=== PATIENT | female | born 1975 | race Asian ===

== ENCOUNTER → 2017-01-14 | Outpatient (CLI) | payer OTHER | LOC: FIMAGING 10:07 | PROVIDERS: ATTEND Obstetrics & Gynecology | DX: Z12.39 Encounter for other screening for malignant neoplasm of breast (principal); R22.2 Localized swelling, mass and lump, trunk | CPT/HCPCS: G0204 ==

== ENCOUNTER 2017-02-17 22:00 | Emergency (ER) | payer OTHER ==
[2017-02-17 22:09] VITALS: RESP 16
[2017-02-17] MEDS ORDERED: KETOROLAC 15 MG/1 ML SDV IVP ONE (22:44)
[2017-02-17 22:48] LABS: ABSOLUTE IMMATURE GRANULOCYTES 0.08 10^3/uL (0.00-0.10); ADD DIFF? NO; ADD MORPH? NO; ADD SCAN? NO; ATYPICAL LYMPHOCYTE FLAG 10 (0-99); FRAGMENT RBC FLAG 0 (0-99); HEMATOCRIT 36.9 % (38.0-47.0); HEMOGLOBIN 12.6 g/dL (12.6-16.3); LEFT SHIFT FLG 0 (0-99); LIPEMIA HEMOLYSIS FLAG 90 (0-99); MEAN CELL HEMOGLOBIN 29.2 pg (27.9-34.1); MEAN CELL HEMOGLOBIN CONCENTR. 34.1 g/dL (32.4-36.7); MEAN CELL VOLUME 85.4 fL (81.5-99.8); MEAN PLATELET VOLUME 10.3 fL (8.7-11.7); PLATELET CLUMPS FLAG 0 (0-99); PLATELET COUNT 189 10^3/uL (150-400); RED BLOOD CELL COUNT 4.32 10^6/uL (4.18-5.33); RED CELL DISTRIBUTION WIDTH 12.9 % (11.5-15.2)
--- NOTE | 2017-02-17 22:53 | CPEKG ---
Heart Rate: 91 RR Interval: 659 P-R Interval: 160 QRSD Interval: 82 QT Interval: 336 QTC Interval: 414 P Mclouth: 46 QRS Mclouth: 42 T Wave Mclouth: 23 EKG Severity - NORMAL ECG - EKG Impression: SINUS RHYTHM Electronically Signed By: Sanjay Camarena 18-Feb-2017 02:47:43
[2017-02-17 22:57] LABS: ANION GAP 15 mEq/L (8-16); CALCIUM 9.8 mg/dL (8.5-10.4); CARBON DIOXIDE 20 mEq/l (22-31); CHLORIDE 102 mEq/L (97-110); CREATININE 0.6 mg/dL (0.6-1.0); GLOMERULAR FILTRATION RATE > 60; GLUCOSE 120 mg/dL (70-100); POTASSIUM 3.5 mEq/L (3.5-5.2); SODIUM 137 mEq/L (134-144)
[2017-02-17 23:08] LABS: TROPONIN I < 0.012 ng/mL (0-0.034)
--- NOTE | 2017-02-17 23:37 | EDPHY ---
H & P Stated Complaint: cp Time Seen by Provider: 02/17/17 22:38 HPI/ROS: Chief Complaint: Chest pain HPI: 41-year-old woman had this sudden onset of left-sided upper chest pain at 9:30 a.m. this evening. At worst pain was a 7/10. Is not afford a 10. She did take 325 mg of aspirin at home. Has had a similar history in the past but not as severe. Worse with movement. No shortness of breath. No recent illness. No leg pain or swelling. Pain is not pleuritic. It is described as a sharp pain in the left side of her chest. She is not a smoker. Does not have any risk factors for coronary artery disease. No recent travel or periods of immobility. ROS: 10 point Review of Systems is negative except as noted in the HPI. PMH: None Medications: None Allergies: Cipro Social History: No smoking, occasional alcohol, no recreational drug use Family History: No history of coronary artery disease or blood clotting disorders Physical Exam: Gen: Awake, Alert, No Distress HEENT: Nose: no rhinorrhea Eyes: PERRLA, EOMI Mouth: Moist mucosa Neck: Supple, no JVD Chest: Exquisite tenderness and here left sternal border of her upper sternum near the manubrium reproducing her presenting complaint., lungs clear to auscultation Heart: S1, S2 normal, no murmur Abd: Soft, non-tender, no guarding Back: no CVA tenderness, no midline tenderness Ext: no edema, non-tender Skin: no rash Neuro: CN II-XII intact, Sensation grossly intact, Strength 5/5 in bilateral upper and lower extremities - Personal History LMP (Females 10-55): 8-14 Days Ago Current Tetanus/Diphtheria Vaccine: Yes Current Tetanus Diphtheria and Acellular Pertussis (TDAP): Yes - Medical/Surgical History Hx Asthma: No Hx Chronic Respiratory Disease: No Hx Diabetes: No Hx Cardiac Disease: No Hx Renal Disease: No Hx Cirrhosis: No Hx Alcoholism: No Hx HIV/AIDS: No Hx Splenectomy or Spleen Trauma: No Other PMH: x2, - Social History Smoking Status: Never smoked Constitutional: Initial Vital Signs Temperature (C) 36.5 C 02/17/17 22:06 Heart Rate 96 02/17/17 22:06 Respiratory Rate 16 02/17/17 22:06 Blood Pressure 124/95 H 02/17/17 22:06 O2 Sat (%) 100 02/17/17 22:06 O2 Delivery Mode Room Air Allergies/Adverse Reactions: ciprofloxacin Allergy (Verified 02/17/17 22:06) Medical Decision Making - Diagnostics EKG Interpretation: ECG time 2218: Sinus rhythm with a rate of 91. Normal axis, normal intervals, no acute ST or T-wave changes. Impression: Normal ECG Imaging Results: Imaging Impressions Chest X-Ray 02/17/17 22:37 Impression: Query mild airways disease. Imaging: I viewed and interpreted images myself ED Course/Re-evaluation: 41-year-old presenting with left-sided chest pain which is very reproducible with palpation. No RF for CAD. Chest x-ray is negative. ECG is normal. Troponin is normal. Given the reproducibility of her pain in her lack of risk factors I do not think this represents acute coronary artery disease at this time or acute coronary syndrome. Will discharge with follow-up with primary care physician, return for worsening. She is improved here after IV Toradol. - Data Points Laboratory Results: Laboratory Results 02/17/17 22:40 02/17/17 22:40 02/17/17 02/17/17 22:40 22:40 WBC 8.33 10^3/uL 10^3/uL (3.80-9.50) RBC 4.32 10^6/uL 10^6/uL (4.18-5.33) Hgb 12.6 g/dL g/dL (12.6-16.3) Hct 36.9 % L % (38.0-47.0) MCV 85.4 fL fL (81.5-99.8) MCH 29.2 pg pg (27.9-34.1) MCHC 34.1 g/dL g/dL (32.4-36.7) RDW 12.9 % % (11.5-15.2) Plt Count 189 10^3/uL 10^3/uL (150-400) MPV 10.3 fL fL (8.7-11.7) Neut % (Auto) 61.5 % % (39.3-74.2) Lymph % (Auto) 31.7 % % (15.0-45.0) Woodson % (Auto) 4.2 % L % (4.5-13.0) Eos % (Auto) 1.2 % % (0.6-7.6) Baso % (Auto) 0.4 % % (0.3-1.7) Nucleat RBC Rel Count 0.0 % % (0.0-0.2) Absolute Neuts (auto) 5.13 10^3/uL 10^3/uL (1.70-6.50) Absolute Lymphs (auto) 2.64 10^3/uL 10^3/uL (1.00-3.00) Absolute Monos (auto) 0.35 10^3/uL 10^3/uL (0.30-0.80) Absolute Eos (auto) 0.10 10^3/uL 10^3/uL (0.03-0.40) Absolute Basos (auto) 0.03 10^3/uL 10^3/uL (0.02-0.10) Absolute Nucleated RBC 0.00 10^3/uL 10^3/uL (0-0.01) Immature Gran % 1.0 % % (0.0-1.1) Immature Gran # 0.08 10^3/uL 10^3/uL (0.00-0.10) Sodium 137 mEq/L mEq/L (134-144) Potassium 3.5 mEq/L mEq/L (3.5-5.2) Chloride 102 mEq/L mEq/L (97-110) Carbon Dioxide 20 mEq/l L mEq/l (22-31) Anion Gap 15 mEq/L mEq/L (8-16) BUN 13 mg/dL mg/dL (7-23) Creatinine 0.6 mg/dL mg/dL (0.6-1.0) Estimated GFR > 60 Glucose 120 mg/dL H mg/dL (70-100) Calcium 9.8 mg/dL mg/dL (8.5-10.4) Troponin I < 0.012 ng/mL ng/mL (0-0.034) Medications Given: Discontinued Medications Ketorolac Tromethamine (Toradol) 15 mg IVP EDNOW ONE Stop: 02/17/17 22:45 Last Admin: 02/17/17 23:23 Dose: 15 mg Departure - Departure Disposition: Home, Routine, Self-Care Clinical Impression: Chest wall pain Condition: Good Instructions: Chest Wall Pain (ED) Additional Instructions: He may alternate ibuprofen with acetaminophen every 4 hours as needed for aches and pains. Follow up with primary care physician in 2-3 days for re-evaluation. Return to the emergency depart for increasing fevers, chills, chest pain, shortness of breath, or any other concerns. Referrals: CORI TIJERINA [Primary Care Provider] - As per Instructions
[2017-02-17 23:57] VITALS: BP 118/72; PULSE 81; TEMP 98.1; O2SAT 98
== END 2017-02-17 23:52 | disposition home or self-care (01) ==
DX: R07.89 Other chest pain (principal)
CPT/HCPCS: 96374; J1885

== ENCOUNTER → 2018-01-16 | Outpatient (CLI) | payer OTHER | LOC: FIMAGING 11:07 | PROVIDERS: ATTEND Obstetrics & Gynecology | DX: Z12.31 Encounter for screening mammogram for malignant neoplasm of breast (principal) ==

== ENCOUNTER → 2018-11-19 | Outpatient (CLI) | payer OTHER | LOC: FIMAGING 09:21 | PROVIDERS: ATTEND Obstetrics & Gynecology | DX: N64.4 Mastodynia (principal) ==